=== PATIENT | female | born 1980 | race Two or more races ===

== ENCOUNTER 2017-10-26 03:10 | Emergency (ER) | payer BC ==
--- NOTE | 2017-10-26 03:29 | EDM.PDOC ---
ED HPI GENERAL MEDICAL PROBLEM - General Chief Complaint: Lower Extremity Injury/Pain Stated Complaint: POSS ANKLE INJURY Time Seen by Provider: 10/26/17 03:24 Source of Information: Reports: Patient History Limitations: Reports: No Limitations - History of Present Illness INITIAL COMMENTS - FREE TEXT/NARRATIVE: 37-year-old female presents to the ED with complaints of severe pain left ankle and foot. She apparently suffered an inversion injury to the ankle and foot when she stepped in a hole at a barbecue day before yesterday. Complaining of severe pain and inability to sleep. She is able to weight-bear on it however. The entire ankle and dorsal lateral foot are swollen and ecchymotic to the toes. Denies any previous fractures to this ankle or foot. Onset: Sudden Onset Date: 10/24/17 Duration: Day(s): Location: Reports: Lower Extremity, Left (Left ankle and foot.) Quality: Reports: Ache, Throbbing Severity: Moderate Improves with: Reports: None Worsens with: Reports: Movement Context: Reports: Trauma (Inversion injury to the left ankle apparently when she stepped in a hole in the dark.). Denies: Activity, Exercise, Lifting, Sick Contact Associated Symptoms: Reports: No Other Symptoms Treatments [employer] WORK[employer]: Reports: Other (see below) Left Ankle Pain Score (Numeric/FACES): 8 - Related Data Allergies Allergy/AdvReac Type Severity Reaction Status Date / Time tramadol Allergy Hives Verified 10/26/17 03:18 Home Meds: Home Meds ALPRAZolam [Alprazolam ER] 1 mg PO DAILY PRN 10/26/17 [History] Potassium Chloride 20 meq PO DAILY 10/26/17 [History] oxyCODONE HCl/Acetaminophen [Percocet 5-325 mg Tablet] 1 - 2 each PO Q4H PRN # 16 tablet 10/26/17 [Rx] Past Medical History Cardiovascular History: Reports: Hypertension Psychiatric History: Reports: Anxiety Social & Family History - Tobacco Use Smoking Status *Q: Never Smoker - Recreational Drug Use Recreational Drug Use: No - Living Situation & Occupation Living situation: Reports: Single Review of Systems - Review of Systems Review Of Systems: See Below Constitutional: Reports: No Symptoms Eyes: Reports: Other Ears: Reports: No Symptoms (Wears eyeglasses.) Nose: Reports: No Symptoms Mouth/Throat: Reports: No Symptoms Respiratory: Reports: No Symptoms Cardiovascular: Reports: No Symptoms GI/Abdominal: Reports: No Symptoms Musculoskeletal: Reports: Foot Pain (Associated left foot and ankle pain.) Skin: Reports: Bruising (Marked ecchymoses of the entire dorsal lateral left foot and ankle.) Neurological: Reports: No Symptoms ED EXAM, GENERAL - Physical Exam Exam: See Below Exam Limited By: Uncooperative General Appearance: WD/WN, Moderate Distress (Very anxious and apprehensive.) Extremities: Other (Examination was limited to her left lower extremity. She has no pain on firm compression of the proximal fibula. From compression of the mid shaft of the tib-fib did not make her ankle pain any worse. The ankle itself is grossly swollen and ecchymotic particular in the lateral aspect is as is the dorsal lateral aspect of her foot with bruising all way to her toes.) Neurological: Alert, Oriented, CN II-XII Intact, Normal Cognition Psychiatric: Anxious Skin Exam: Warm, Dry, Intact, Normal Color, No Rash Course - Vital Signs Last Recorded V/S: Last Vital Signs Temp 36.6 C 10/26/17 03:16 Pulse 110 H 10/26/17 03:16 Resp 16 10/26/17 03:16 BP 146/104 H 10/26/17 03:16 Pulse Ox 98 10/26/17 03:16 - Orders/Labs/Meds Orders: Active Orders 24 hr Category Date Time Status Ankle Min 3V Lt [CR] Stat Exams 10/26/17 03:24 Taken Foot Comp Min 3V Lt [CR] Stat Exams 10/26/17 03:25 Taken Durable Medical Equipment for Discharge [DME for Oth 10/26/17 03:44 Ordered Discharge] [COMM] Routine Meds: Medications Discontinued Medications Generic Name Dose Route Start Last Admin Trade Name Freq PRN Reason Stop Dose Admin Ondansetron HCl 4 mg 10/26/17 03:45 Zofran Odt PO 10/26/17 03:46 ONETIME ONE Oxycodone/Acetaminophen 2 tab 10/26/17 03:44 Percocet 325-5 Mg PO 10/26/17 03:45 ONETIME ONE - Radiology Interpretation Free Text/Narrative:: 37-year-old female presents to the ED with an inversion injury to her left ankle and foot area that is at least a day and a half old. She stepped in a hole in the dark at a barbecue in inverted the ankle and foot. Pain is bad enough tonight that she is unable to sleep and therefore she came to the ED. There is extensive ecchymoses and swelling of the dorsal lateral ankle and foot. Plan x-ray both foot and ankle to be done. - Re-Assessments/Exams Free Text/Narrative Re-Assessment/Exam: 10/26/17 03:37 x-rays of the left foot and ankle are within normal limits showing no fractures. There are numerous striations across the distal tibia and fibula suggestive of iron deficiency anemia. Plan she'll be discharged on crutches and be nonweightbearing for 4-5 days. Percocet 5/325 milligrams tabs 2 given for pain relief in the ED and a prescription for 16 tablets will be sent home with her. She is having sweats. This point time that I do not believe should tolerate an Mychal wrap I did send one home with her that may perhaps she can apply tomorrow. Ideally ice pack to the area-- one half hour out of every 4 hours. Elevate the foot and leg is much as possible for the next 2 days to reduce the swelling. Follow-up advised if not we will back to normal in ability to walk in 14 days time Departure - Departure Time of Disposition: 03:45 Disposition: Home, Self-Care 01 Condition: Fair Clinical Impression: Sprain of calcaneofibular ligament of left ankle, initial encounter, Contusion of left foot, initial encounter - Discharge Information Prescriptions: oxyCODONE HCl/Acetaminophen [Percocet 5-325 mg Tablet] 1 - 2 each PO Q4H PRN # 16 tablet PRN Reason: pain relief. Referrals: Grisel Fontanez PA-C [Primary Care Provider] - Forms: ED Department Discharge Additional Instructions: Evaluation in the emergency room tonight in regards to injury to the left ankle and foot that occurred greater than 24 hours ago. Am reveals marked swelling of the lateral aspect of the left ankle and dorsal foot with marked bruising. X- rays were carried out of both the ankle and the foot and no broken bones were identified. Treatment is therefore to elevate the foot and leg is much as possible for the next day or 2. Ice pack to the area ideally over an Mychal wrap one half hour out of every 4 hours for the next day Mychal wrap then should be worn during the day and taken off at nighttime for the next 10 days suggest nonweightbearing crutch walking for the next 4-5 days until able to bear weight with minimal amount of pain. After that shoewear is important. Ideally wearing a laced up shoe with good support for the next several weeks versus sandals may prevent further inversion injury to the ankle and recurrent sprain. Continue Motrin 600 mg every 6 hours to reduce the pain and inflammation. Percocet tabs 5 /3/25 milligrams strength one or 2 tablets every 4-6 hours as needed for pain relief for the next few days until the swelling starts to settle down. In 2 days time may apply heat to the area which will help reduce the swelling and inflammation. Follow-up with personal care physician if not walking pretty well close to normal in 14 days time - My Orders Last 24 Hours: My Active Orders 10/26/17 03:24 Ankle Min 3V Lt [CR] Stat 10/26/17 03:25 Foot Comp Min 3V Lt [CR] Stat 10/26/17 03:44 Durable Medical Equipment for Discharge [DME for Discharge] [COMM] Routine - Assessment/Plan Last 24 Hours: My Active Orders 10/26/17 03:24 Ankle Min 3V Lt [CR] Stat 10/26/17 03:25 Foot Comp Min 3V Lt [CR] Stat 10/26/17 03:44 Durable Medical Equipment for Discharge [DME for Discharge] [COMM] Routine
[2017-10-26] MEDS ORDERED: Acetaminophen/oxyCODONE 325-5 MG Tab PO ONE (03:44)
[2017-10-26] MEDS ORDERED: Ondansetron 4 MG Tab.DIS PO ONE (03:45)
--- NOTE | 2017-10-26 06:49 | CR ---
Left ankle: Four views of the left ankle were obtained. Comparison: No prior exam. Minimal plantar spur is seen. Ankle mortise is symmetric. No acute fracture or other bony abnormality is seen. Impression: 1. Minimal plantar spur. 2. Left ankle study is otherwise unremarkable. Diagnostic code #1
--- NOTE | 2017-10-26 07:23 | CR ---
Left foot: Three views of the left foot were obtained. Comparison: No previous study. Minimal plantar spur is seen. Soft tissue swelling is identified. Joint spaces are preserved. No fracture, dislocation or other bony abnormality is seen. Impression: 1. Incidental findings. No acute bony abnormality is identified on left foot exam. Diagnostic code #2
== END 2017-10-26 03:55 | disposition home or self-care (01) ==
LOC: JD.ED 03:10
DX: S93.412A Sprain of calcaneofibular ligament of left ankle, initial encounter (principal); S90.32XA Contusion of left foot, initial encounter; I10 Essential (primary) hypertension; Z88.5 Allergy status to narcotic agent; X50.9XXA Other and unspecified overexertion or strenuous movements or postures, initial encounter
CPT/HCPCS: 73610; 73630; 99283; A9270